=== PATIENT | female | born 1985 | race African-American/Black ===

== ENCOUNTER 2021-03-22 22:15 | Emergency (ER) | payer BC ==
[~2021-03-22] VITALS: Ht 157.5 cm; Wt 96.0 kg
[~2021-03-22 22:15] MED LIST: ALPR0.25 PO
[2021-03-22 22:26] VITALS: BP 118/81
[2021-03-22] MEDS ORDERED: TETRACAINE 0.5% OPHTH SOLUTION 4ML BOTTLE. OD ONE (23:00)
[2021-03-22] MEDS ORDERED: IBUPROFEN 600 MG TABLET. PO ONE (23:00)
[2021-03-22] MEDS ORDERED: FLUORESCEIN 1MG EYE STRIP. OD ONE (23:00)
[2021-03-22] MEDS ORDERED: ERYTHROMYCIN 0.5% OPHTH OINTMENT 1GM TUBE. ONE (23:11)
[2021-03-22] MEDS ORDERED: ERYT1OIN3 OD (23:14)
--- NOTE | 2021-03-22 23:15 | PHYS DOC ---
Past History Past Medical History: Asthma, Hypothyroid Past Surgical History: Alcohol Use: None Drug Use: None General Adult EDM: Chief Complaint: EYE PROBLEMS HPI: HPI: Patient is a 35 year old female who presents with R eye pain. Patient reports this evening her child poked her in the eye with their finger. She has had pain, blurred vision, and foreign body sensation since. Pt does not wear contacts or glasses. Review of Systems: Review of Systems: Constitutional: Denies fever or chills Eyes: Endorses redness and eye pain. Integument: Denies rash or skin lesions Neurologic: Denies headache or sensory changes Complete systems were reviewed and found to be within normal limits, except as documented in this note. Current Medications: Current Meds: Current Medications Medications (Trade) Dose Ordered Sig/Jerry Start Time Stop Time Status Last Admin Dose Admin Erythromycin (Romycin) 0.25 inch 1X ONCE 03/22/21 23:15 2 23:16 UNV Fluorescein Sodium (Ful-Kristy 1mg) 1 strip 1X ONCE 03/22/21 23:00 03/22/21 23:01 DC 03/22/21 23:00 1 STRIP Ibuprofen (Motrin) 600 mg 1X ONCE 03/22/21 23:00 03/22/21 23:01 DC 03/22/21 22:49 600 MG Tetracaine HCl (Tetracaine) 2 drop 1X ONCE 03/22/21 23:00 03/22/21 23:01 DC 03/22/21 23:00 2 DROP Allergies: Allergies: Allergies Coded Allergies Type Severity Reaction Last Updated Verified No Known Drug Allergies 03/05/16 No Physical Exam: PE: Constitutional: Well developed, well nourished, no acute distress, non-toxic appearance HENT: Normocephalic, atraumatic Eyes: PERRL, EOMI, R conjunctiva inflamed, watery discharge noted. Fluorescein uptake noted at 5 o'clock position consistent for corneal abrasion, no Blaze sign appreciated Neck: Normal range of motion, no tenderness, supple Lungs & Thorax: CTAB, no wheezing Skin: Warm, dry, no erythema, no rash Extremities: No tenderness, no edema Neurologic: Alert and oriented X 3, no focal deficits noted Psychologic: Affect normal, judgment normal Current Patient Data: Vital Signs: Vital Signs Date Time Temp Pulse Resp B/P (MAP) Pulse Ox O2 Delivery O2 Flow Rate FiO2 03/22/21 22:26 98.7 96 18 118/81 (93) 97 Room Air EKG: EKG: [] Radiology/Procedures: Radiology/Procedures: [] Heart Score: C/O Chest Pain: N/A Course & Med Decision Making: Course & Med Decision Making Patient presented for right eye pain. Paulino lamp examination revealed fl uorescein uptake at the 5 o'clock position of right eye. No Blaze sign, no retained foreign body on exam and with upper eyelid eversion. Topical ophthalmic erythromycin applied after Paulino lamp examination. Pain addressed. Patient stable for discharge with outpatient follow-up with PCP/zumba instructor. Discussed findings and plan with patient and family, who acknowledge unders tanding and agreement. Radha Disclaimer: Radha Disclaimer: This electronic medical record was generated, in whole or in part, using a voice recognition dictation system. Departure Departure: Impression: Primary Impression: Corneal abrasion, right Qualified Codes: S05.01XA - Injury of conjunctiva and corneal abrasion without foreign body, right eye, initial encounter Disposition: HOME / SELF CARE / HOMELESS Condition: STABLE Referrals: JUAN LEDESMA (PCP) Patient Instructions: Eye - Corneal Abrasion, [id number] Additional Instructions: Use [id number] ibuprofen and or Tylenol for pain or discomfort. Scripts Erythromycin Base (Erythromycin) 1 Gm Oint...g. 0.25 INCH OD QID for Corneal Abrasion for 5 Days, #1 GM Prov: KEON VERDUZCO DO 03/22/21 KEON VERDUZCO DO Mar 22, 2021 23:15
[2021-03-22] MEDS ORDERED: ERYTHROMYCIN 0.5% OPHTH OINTMENT 1GM TUBE. OD ONE (23:30)
== END 2021-03-22 23:17 | disposition home or self-care (01) ==
LOC: ER 22:15
DX: S05.01XA Injury of conjunctiva and corneal abrasion without foreign body, right eye, initial encounter (principal); J45.909 Unspecified asthma, uncomplicated; E03.9 Hypothyroidism, unspecified; W50.0XXA Accidental hit or strike by another person, initial encounter; Y93.89 Activity, other specified; Y92.89 Other specified places as the place of occurrence of the external cause; Y99.8 Other external cause status
CPT/HCPCS: 99284